=== PATIENT | male | born 1965 | race Caucasian/White ===

== ENCOUNTER 2021-05-19 08:36 | Emergency (ER) | payer BC, SELFPAY ==
--- NOTE | ~2021-05-19 | XR_ITS ---
EXAMINATION: XR ribs LT 2V EXAM DATE: 05/19/2021 09:45 INDICATION: Swelling and status post 05/14/2021, left posterior flank pain. TECHNIQUE: Frontal projection of the upper left ribs, frontal projection of the lower left ribs, obli que projection of the left ribs, without chest x-ray(s) for interpretation. There is no prior study for comparison. FINDINGS: Acute closed posttraumatic fractures through the left 7th and 8th ribs posteriorly. Mild di splacement to the 8th rib. No pneumothorax. L4-5 lumbar fusion. There are also chronic appearing rib fractures of the 8th 9th and 10th ribs anterolaterally. IMPRESSION: 1. Acute left 7th, 8th rib fractures posteriorly. 2. Chronic appearing 8-10th rib fractures anterolaterally. Reviewed, dictated and finalized at location B.
[2021-05-19 08:50] VITALS: BP 146/85; PULSE 88; RESP 18; TEMP 36.7; O2SAT 99
--- NOTE | 2021-05-19 09:47 | ED.GENADULT ---
HPI - General Adult General Chief complaint: Upper Respiratory Infection Stated complaint: left side back pain from injury Time Seen by Provider: 05/19/21 09:47 Source: patient, RN notes reviewed and old records reviewed Mode of arrival: ambulatory Limitations: no limitations History of Present Illness HPI narrative: 55 year old male presents to [facility] care with complaints of pain to his left lateral posterior chest region since . He reports that he tripped over his dog and fell into wrought iron bed headboard hitting his left side of his posterior lateral chest. Patient reports no acute shortness of breath but increase in pain to left lateral posterior chest if he coughs or sneezes, denies any known wheezes. Onset (ago): day(s) (5) Related Data Home Medications Medication Instructions Recorded Confirmed fluoxetine mg 05/19/21 gabapentin 05/19/21 meloxicam 05/19/21 trazodone 05/19/21 Allergies Allergy/AdvReac Type Severity Reaction Status Date / Time No Known Allergies Allergy Verified 05/19/21 10:06 Review of Systems Review of Systems: CONSTITUTIONAL: Denies fever, chills, or sweats. EYES: Denies visual changes, redness, or discharge. ENT: Denies rhinorrhea, congestion, sore throat, or otalgia. CARDIOVASCULAR: Positive left lateral posterior chest pain,no palpitations, or edema. RESPIRATORY: Denies cough or acute dyspnea. GASTROINTESTINAL: Denies abdominal pain, nausea, vomiting, or diarrhea. GENITOURINARY: Denies dysuria or hematuria. SKIN: Denies rash or itching. MUSCULOSKELETAL: Denies back pain, joint pain, or myalgia. NEUROLOGIC: Denies headache, numbness, or weakness. PSYCHIATRIC:Positive history of anxiety or depression. All systems reviewed & are unremarkable except as noted in HPI and below PMFSH Past Medical History Medical History (Updated 05/23/21 @ 09:40 by Bridgette Brothers NP) Anxiety Left rib fracture Rib fractures Surgical History Surgical History (Updated 05/23/21 @ 09:39 by Bridgette Brothers NP) History of left knee surgery Previous back surgery Lumbar 4-5 Family History Family History (Updated 05/23/21 @ 09:39 by Bridgette Brothers NP) Other Family history non-contributory Social History Social History (Updated 09/18/21 @ 09:38 by Bridgette Brothers NP) Smoking status: Current every day smoker Tobacco type: cigarettes and e-cigarettes/vaping Alcohol intake: current Alcohol use details: social Substance use: never Gender identity (if verbalized by the patient): Male Comments At time of signature, agree with nursing past medical, surgical, social and family history. There is no relevant family history pertinent to the presenting complaint Exam Narrative: GENERAL: Well-appearing, well-nourished, and in no acute distress. HEAD: Normocephalic, atraumatic. EYES: PERRLA and EOMI. ENT: Nares clear, no rhinorrhea or epistaxis. Mucous membranes moist. NECK: Supple. no lymphadenopathy CHEST: Clear to auscultation. No respiratory distress.SAO2 99% on room air pain to left lateral posterior aspect of chest from injury no tachypnea noted HEART: Regular rate and rhythm. No murmur heard. Normal peripheral pulses. ABDOMEN: Soft, nontender, nondistended, normal active bowel sounds. EXTREMITIES: Normal range of motion. No edema. SKIN: Warm, dry, no rash. NEURO: No focal deficits. Alert and oriented x3. Course Vital Signs Vital signs: Vital Signs Temperature 36.7 C 05/19/21 08:50 Pulse Rate 88 05/19/21 08:50 Respiratory Rate 18 05/19/21 08:50 Blood Pressure 146/85 H 05/19/21 08:50 Pulse Oximetry 99 05/19/21 08:50 Temperature 36.7 C 05/19/21 08:50 Pulse Rate 88 05/19/21 08:50 Respiratory Rate 18 05/19/21 08:50 Blood Pressure 146/85 H 05/19/21 08:50 Pulse Oximetry 99 05/19/21 08:50 Medical Decision Making Differential Diagnosis Differential Diagnosis: contusion to ribs, fracture to ribs, posterior lateral
== END 2021-05-19 10:20 | disposition home or self-care (01) ==
PROVIDERS: Emergency Provider Registered Nurse; PCP Family Medicine
DX: S22.42XA Multiple fractures of ribs, left side, initial encounter for closed fracture (principal); X58.XXXA Exposure to other specified factors, initial encounter
CPT/HCPCS: 71100; 99213; G0463

== ENCOUNTER 2021-05-25 14:40 | Outpatient (CLI) | payer BC, SELFPAY ==
[2021-05-25 19:46] LABS: Hematocrit 43.5 % (42.0-52.0); Hemoglobin 14.4 g/dL (14.0-18.0); Mean Corpuscular HGB Conc 33.1 g/dl (32-36); Mean Corpuscular Hemoglobin 32.4 pg (26-34); Mean Platelet Volume 9.3 fl (7.4-10.4); Platelet Count Result 206 k/mm3 (150-375); Red Blood Count 4.44 M/mm3 (4.6-6.20); Red Cell Distribution Width 14.1 % (11.5-14.5); White Blood Count 5.6 K/mm3 (4.5-10.0)
[2021-05-25 19:55] LABS: Alanine Aminotransferase 46 U/L (4-50); Albumin Level 4.2 g/dL (3.5-5.1); Alkaline Phosphatase 60 U/L (38-126); Anion Gap 7 mmol/L (8-16); Aspartate Amino Transferase 39 U/L (17-59); Bilirubin,Total 0.5 mg/dL (0.2-1.3); Blood Urea Nitrogen 22 mg/dL (9-20); Calcium 9.3 mg/dL (8.4-10.2); Carbon Dioxide 29 mmol/L (22-30); Chloride 102 mmol/L (98-107); Cholesterol 151 mg/dL (0-200); Estimated Glomerular Filt Rate > 60; Glucose 110 mg/dL (65-110); HDL Direct 58 mg/dL; Potassium 4.7 mmol/L (3.4-5.0); Sodium 138 mmol/L (137-145); Triglycerides 97 mg/dL (<150)
[2021-05-25 20:07] LABS: LDL Cholesterol Direct 73 mg/dL
[2021-05-25 20:26] LABS: Prostate Specific Antigen 1.8 ng/mL (< OR = 4.0)
[2021-05-25 21:10] LABS: Hemoglobin A1C 5.2 % (<5.7)
== END 2021-05-25 14:41 | disposition home or self-care (01) ==
LOC: ANHBWCLAB 14:41
PROVIDERS: PCP Family Medicine; Visit Provider Family Medicine
DX: Z12.5 Encounter for screening for malignant neoplasm of prostate (principal); G56.03 Carpal tunnel syndrome, bilateral upper limbs; G47.00 Insomnia, unspecified; Z00.00 Encounter for general adult medical examination without abnormal findings; F41.8 Other specified anxiety disorders
CPT/HCPCS: 36415; 80053; 80061; 83036; 84153; 85027; G0103

== ENCOUNTER 2021-06-10 16:15 | Emergency (ER) | payer BC, SELFPAY ==
--- NOTE | 2021-06-10 16:21 | ED.SKABFB ---
HPI - Skin/Abscess/Foreign Bdy General Chief complaint: Skin/Abscess/Foreign Body Stated complaint: Bee Sting Time Seen by Provider: 06/10/21 16:21 Source: patient and RN notes reviewed History of Present Illness HPI narrative: Patient is a 55-year-old male who presents the urgent care with complaints of a bee sting to the left upper arm. Patient states that he got swarmed by bees yesterday and has been using Benadryl, antiseptic cream and aloe to the area. Patient denies of any fever, chills, nausea, vomiting. No other acute complaints. No acute distress noted. Patient aware of the plan of care. Some parts of this dictation were generated by voice recognition software and may contain typographical and/or grammatical inaccuracies. Related Data Home Medications Medication Instructions Recorded Confirmed fluoxetine 40 mg PO DAILY 05/19/21 06/10/21 trazodone 100 mg PO HS 05/19/21 06/10/21 gabapentin 300 mg capsule 300 mg PO BID cap 05/25/21 06/10/21 Allergies Allergy/AdvReac Type Severity Reaction Status Date / Time amoxicillin Allergy Unknown Verified 06/10/21 16:37 Sulfa (Sulfonamide Allergy Unknown Verified 06/10/21 16:37 Antibiotics) Review of Systems Review of Systems: CONSTITUTIONAL: Denies fever, chills, or sweats. EYES: Denies visual changes, redness, or discharge. ENT: Denies rhinorrhea, congestion, sore throat, or otalgia. CARDIOVASCULAR: Denies chest pain, palpitations, or edema. RESPIRATORY: Denies cough or dyspnea. GASTROINTESTINAL: Denies abdominal pain, nausea, vomiting, or diarrhea. GENITOURINARY: Denies dysuria or hematuria. SKIN: Reports of redness and swelling to the left upper arm MUSCULOSKELETAL: Denies back pain, joint pain, or myalgia. NEUROLOGIC: Denies headache, numbness, or weakness. All other systems reviewed are negative, except as documented in HPI. FOR[facility]LY [facility] Past Medical History Medical History Anxiety Arthritis Left rib fracture Rib fractures Surgical History Surgical History History of left knee surgery Previous back surgery Lumbar 4-5 Family History Family History Father Throat cancer Alcohol abuse Mother Carcinoma of colon Sibling Malignant neoplasm of prostate Hypertension Depression Anxiety Other Depression Anxiety Other Family history non-contributory Social History Social History Smoking packs per day: 0.5 Smoking cigarettes per day: 10.0 Smoking status: Current every day smoker Tobacco type: cigarettes and e-cigarettes/vaping Alcohol intake: current Alcohol use details: social Substance use: never Gender identity (if verbalized by the patient): Male Comments At the time of my signature, I reviewed and agree with the nursing past medical, surgical, social, and family history. There is no relevant family history pertinent to the patient complaint. Exam Narrative: GENERAL: This is a well-nourished, well-developed patient, in no apparent distress. HEAD: normocephalic, atraumatic. EYES: PERRL. Sclera clear/white. Vision is grossly intact. EARS: External ears normal NOSE: External nose normal with no obvious nasal discharge, nares without redness, no rhinorrhea. THROAT: Mucous membranes moist NECK: Neck supple CARDIOVASCULAR: Regular rate and rhythm without murmurs, gallops, or rubs. RESPIRATORY: Slight crackles bibasilar,no wheezes, rales, or rhonchi. SKIN: 9 x 7 area of erythema to the left upper arm without any signs or symptoms of cellulitis. Warm, intact with no suspicious lesions or rash, good texture and turgor. NEURO: awake, alert, and oriented to person, place and time. There were no obvious focal neurologic abnormalities. EXTREMITIES: No clubbing, cyanosis, or edema. Course Vital Signs Vital s
[2021-06-10 16:24] VITALS: BP 143/80; PULSE 89; RESP 18; TEMP 36.1; O2SAT 98
== END 2021-06-10 16:50 | disposition home or self-care (01) ==
PROVIDERS: Emergency Provider Nurse Practitioner Family; PCP Family Medicine
DX: T63.441A Toxic effect of venom of bees, accidental (unintentional), initial encounter (principal); F17.200 Nicotine dependence, unspecified, uncomplicated; F41.9 Anxiety disorder, unspecified; M19.90 Unspecified osteoarthritis, unspecified site
CPT/HCPCS: 99213; G0463

== ENCOUNTER 2021-07-14 13:44 | Outpatient (CLI) | payer BC, SELFPAY ==
--- NOTE | ~2021-07-14 | XR_ITS ---
XR knee LT min 4V 07/14/2021 14:27 INDICATION: Left knee pain PROCEDURE: 5 views left knee COMPARISON: No prior studies for comparison. FINDINGS: Fracture, dislocation or subluxation is not identified. Small knee effusion. The soft tissu es appear within normal limits. No foreign bodies are identified. IMPRESSION: 1: NO ACUTE BONE OR JOINT ABNORMALITY IDENTIFIED. Reviewed, dictated and finalized at location A. DATION CONSULTANT
== END 2021-07-14 13:45 | disposition home or self-care (01) ==
LOC: ANHBWCIMG 13:45
PROVIDERS: PCP Family Medicine; Visit Provider Family Medicine
DX: M79.2 Neuralgia and neuritis, unspecified (principal); M54.2 Cervicalgia; M25.562 Pain in left knee
CPT/HCPCS: 73564

== ENCOUNTER 2021-07-16 10:37 | Outpatient (CLI) | payer BC, SELFPAY ==
--- NOTE | ~2021-07-16 | CT_ITS ---
EXAMINATION: CT lung screening DATE: 07/16/2021 10:54 INDICATION: Personal history of nicotine dependence, current smoker with 30 pack year history TECHNIQUE: Computed tomography (CT) of the chest was performed without intravenous contrast. The dose -length product (DLP) was 121.62 mGy-cm. Automated exposure control and iterative reconstruction tech [employer] were employed. COMPARISON: None FINDINGS: There is a 3 mm nodule of the right lower lobe. A fissural lymph node is noted in the right minor fissure. There is mild emphysema. The lungs are free of focal airspace opacities. There is no pleural effusion or pneumothorax. No pathologically enlarged thoracic lymph nodes are identified. The heart size is normal. 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 There is a right-sided aortic arch and aorta. There is mild thoracic spondylosis. IMPRESSION: 1. Lung-RADS category 2: Benign appearance or behavior. Continue annual screening with noncontrast lo w-dose chest CT in 12 months. Reviewed, dictated and finalized at location B. NING MANAGER IMPRESSION: 1. Lung-RADS category 2: Benign appearance or behavior. Continue annual screeni ng with noncontrast low-dose chest CT in 12 months.
== END 2021-07-16 10:38 | disposition home or self-care (01) ==
PROVIDERS: PCP Family Medicine; Visit Provider Family Medicine
DX: Z12.2 Encounter for screening for malignant neoplasm of respiratory organs (principal)
CPT/HCPCS: 71271

== ENCOUNTER 2021-08-11 07:43 | Outpatient (CLI) | payer BC, SELFPAY ==
--- NOTE | ~2021-08-11 | XR_ITS ---
EXAMINATION:XR cervical spine 4-5V DATE: 08/11/2021 08:07 INDICATION: Neck pain TECHNIQUE: AP, lateral, lateral swimmers and odontoid views of the cervical spine are provided. COMPARISON: None FINDINGS: There are 2 mm of anterolisthesis of C3 on C4, 2 mm of retrolisthesis of C4 on C5, and 1 mm of retrolisthesis of C5 on C6. The odontoid is intact. There is mild wedging of the C4, C5, and C6 v ertebral bodies. There is mild loss of intervertebral disc space height at C4-5 and C5-6. Small degen erative osteophytes project from the anterior endplates of multiple vertebral bodies. There is modera te multilevel facet osteoarthritis. Prevertebral soft tissues are normal. IMPRESSION: 1. Mild cervical spondylosis with chronic appearing wedging of C4-C6. Consider cervical spine MRI if acute findings are suspected. Reviewed, dictated and finalized at location A. BOSS
[2021-08-11 21:26] LABS: Folic Acid > 20.0 ng/mL (2.76->20)
== END 2021-08-11 07:44 | disposition home or self-care (01) ==
LOC: ANHBWCLAB 07:46
PROVIDERS: PCP Family Medicine; Visit Provider Family Medicine
DX: M47.812 Spondylosis without myelopathy or radiculopathy, cervical region (principal); R20.2 Paresthesia of skin; G56.03 Carpal tunnel syndrome, bilateral upper limbs
CPT/HCPCS: 36415; 72050; 82607; 82746

== ENCOUNTER 2021-12-03 01:35 | Day surgery (SDC) | payer BC, SELFPAY ==
[2021-11-19 15:17] VITALS: BMI 33.5
--- NOTE | 2021-12-02 14:46 | PM.HPGS ---
History of Present Illness History of Present Illness Consent: Risks, benefits, and alternatives have been discussed and questions answered. Patient agrees to proceed with procedure. Chief complaint: neoplasm screening Narrative: Prabhakar Hawley is a 56 year old male Referred for colon cancer screening Review of Systems Review of Systems: All systems reviewed & are unremarkable except as noted in HPI and below PMFSH Past Medical History Medical History Anxiety Arthritis Left rib fracture Rib fractures Surgical History Surgical History History of left knee surgery Previous back surgery Lumbar 4-5 Family History Family History Father Throat cancer Alcohol abuse Mother Carcinoma of colon Sibling Malignant neoplasm of prostate Hypertension Depression Anxiety Other Depression Anxiety Other Family history non-contributory Social History Social History Smoking packs per day: 1 Smoking cigarettes per day: 20.0 Years smoked: 30 Smoking pack-years: 30.00 Smoking status: Current every day smoker Tobacco type: cigarettes Additional smoking assessment comments: smokes 1 PPD Alcohol intake: current Alcohol use details: Drinks 1 pint daily Substance use: never Substance use type: does not use Living arrangements: with family Gender identity (if verbalized by the patient): Male Spiritual care concerns: No Meds Home Medications and Allergies Home Medications Medication Instructions Recorded Confirmed Type gabapentin 300 mg capsule 600 mg PO BID #180 cap 08/06/21 11/19/21 Rx fluoxetine 60 mg tablet 60 mg PO DAILY #90 tablet 09/07/21 11/19/21 Rx sildenafil 50 mg tablet 50 mg PO DAILY PRN #30 tablet 09/30/21 11/19/21 Rx zolpidem 5 mg tablet 5 mg PO QHS PRN #30 tablet 09/30/21 11/19/21 Rx Allergies Allergy/AdvReac Type Severity Reaction Status Date / Time amoxicillin Allergy Unknown Verified 11/19/21 15:04 Sulfa (Sulfonamide Allergy Unknown Verified 11/19/21 15:04 Antibiotics) Exam Const: General: alert Orientation/consciousness: patient oriented x3 Resp: Auscultation: clear to auscultation bilaterally Cardio: Rhythm: regular rhythm GI: GI Palp: Yes Soft to palpation and No Tenderness to palpation present (GI) Neuro: General: patient oriented x3 Assessment and Plan Assessment and plan (1) Colon cancer screening: Code(s): Z12.11 - Encounter for screening for malignant neoplasm of colon Status: Acute Assessment and Plan: Colonoscopy with possible biopsy or polypectomy or cautery or injection of substances.
[2021-12-03 11:12] VITALS: BP 144/82; PULSE 110; RESP 18; TEMP 36.4; O2SAT 98
[2021-12-03] MEDS: LACTATED RINGERS 1,000 ML 150 ML IV CONT (11:15)
--- NOTE | 2021-12-03 11:53 | PM.HPGS ---
History of Present Illness History of Present Illness Consent: Risks, benefits, and alternatives have been discussed and questions answered. Patient agrees to proceed with procedure. Chief complaint: neoplasm screening Narrative: Prabhakar Hawley is a 56 year old male Referred for colon cancer screening. Review of Systems Review of Systems: All systems reviewed & are unremarkable except as noted in HPI and below PMFSH Past Medical History Medical History Anxiety Arthritis Left rib fracture Rib fractures Surgical History Surgical History History of left knee surgery Previous back surgery Lumbar 4-5 Family History Family History Father Throat cancer Alcohol abuse Mother Carcinoma of colon Sibling Malignant neoplasm of prostate Hypertension Depression Anxiety Other Depression Anxiety Other Family history non-contributory Social History Social History Smoking packs per day: 1 Smoking cigarettes per day: 20.0 Years smoked: 30 Smoking pack-years: 30.00 Smoking status: Current every day smoker Tobacco type: cigarettes Additional smoking assessment comments: smokes 1 PPD Alcohol intake: current Alcohol use details: Drinks 1 pint daily Substance use: never Substance use type: does not use Living arrangements: with family Gender identity (if verbalized by the patient): Male Spiritual care concerns: No Meds Home Medications and Allergies Home Medications Medication Instructions Recorded Confirmed Type gabapentin 300 mg capsule 600 mg PO BID #180 cap 08/06/21 11/19/21 Rx fluoxetine 60 mg tablet 60 mg PO DAILY #90 tablet 09/07/21 11/19/21 Rx sildenafil 50 mg tablet 50 mg PO DAILY PRN #30 tablet 09/30/21 11/19/21 Rx zolpidem 5 mg tablet 5 mg PO QHS PRN #30 tablet 09/30/21 11/19/21 Rx Allergies Allergy/AdvReac Type Severity Reaction Status Date / Time amoxicillin Allergy Unknown Verified 12/03/21 11:11 Sulfa (Sulfonamide Allergy Unknown Verified 12/03/21 11:11 Antibiotics) Vital Signs Vital Signs - 24 hr 12/03/21 11:12 Temperature 36.4 C L Pulse Rate 110 H Respiratory Rate 18 Blood Pressure 144/82 H Pulse Oximetry 98 Exam Const: General: alert Orientation/consciousness: patient oriented x3 Resp: Auscultation: clear to auscultation bilaterally Cardio: Rhythm: regular rhythm GI: GI Palp: Yes Soft to palpation and No Tenderness to palpation present (GI) Neuro: General: patient oriented x3 Assessment and Plan Assessment and plan (1) Colon cancer screening: Code(s): Z12.11 - Encounter for screening for malignant neoplasm of colon Status: Acute Assessment and Plan: Colonoscopy with possible biopsy or polypectomy or cautery or injection of substances.
--- NOTE | 2021-12-03 12:05 | WPDANESEPPF ---
Anes - Initial Pre Proc Eval Procedure: Operation Date: 12/03/21 12:30 Proposed Procedures p Screening Colonoscopy - Elvin Moss MD Date/Time: 12/03/21 12:05 Surgeon: Elvin Moss MD Pre Op Diagnosis: neoplasm screening Patient Data Age: 56 Gender: M Height: 1.73 m Weight: 88.1 kg Last Vital Signs Temp 97.5 F L 12/03/21 11:12 Pulse 110 H 12/03/21 11:12 Resp 18 12/03/21 11:12 BP 144/82 H 12/03/21 11:12 Pulse Ox 98 12/03/21 11:12 Allergies Allergy/AdvReac Type Severity Reaction Status Date / Time amoxicillin Allergy Unknown Verified 12/03/21 11:11 Sulfa (Sulfonamide Allergy Unknown Verified 12/03/21 11:11 Antibiotics) Home Medications Medication Instructions Recorded Confirmed Type gabapentin 300 mg capsule 600 mg PO BID #180 cap 08/06/21 11/19/21 Rx fluoxetine 60 mg tablet 60 mg PO DAILY #90 tablet 09/07/21 11/19/21 Rx sildenafil 50 mg tablet 50 mg PO DAILY PRN #30 tablet 09/30/21 11/19/21 Rx zolpidem 5 mg tablet 5 mg PO QHS PRN #30 tablet 09/30/21 11/19/21 Rx Patient hx anesthesia problems: none Family hx anesthesia problems: none Results Review: All pre-operative results and documents have been reviewed as part of the pre-operative evaluation. [facility] Past Medical History Medical History Anxiety Arthritis Left rib fracture Rib fractures Surgical History Surgical History History of left knee surgery Previous back surgery Lumbar 4-5 Family History Family History Father Throat cancer Alcohol abuse Mother Carcinoma of colon Sibling Malignant neoplasm of prostate Hypertension Depression Anxiety Other Depression Anxiety Other Family history non-contributory Social History Social History Smoking packs per day: 1 Smoking cigarettes per day: 20.0 Years smoked: 30 Smoking pack-years: 30.00 Smoking status: Current every day smoker Tobacco type: cigarettes Additional smoking assessment comments: smokes 1 PPD Alcohol intake: current Alcohol use details: Drinks 1 pint daily Substance use: never Substance use type: does not use Living arrangements: with family Gender identity (if verbalized by the patient): Male Spiritual care concerns: No Anes - Eval Final PreProcedure Day of Procedure 12/03/21 12:05 Patient weight: overweight Heart: regular rate and rhythm Lungs: clear to auscultation Airway: Mallampati scale class II Neurological: alert and oriented Last oral intake: >/= 8 hours ASA classification: II Emergent: no Anesthetic plan: proceed Anesthesia type and monitoring: general GIVS and standard monitoring Results Review: All pre-operative results and documents have been reviewed as part of the pre-operative evaluation. Informed Consent: The patient's anesthetic plan and its attendant risks and benefits were discussed with the patient/family/POA. Questions were solicited and answers provided to the satisfaction of the patient/family/POA.
[2021-12-03 12:53] VITALS: BP 91/64; PULSE 100; RESP 15; O2SAT 95
[2021-12-03 13:03] VITALS: BP 102/74; PULSE 99; RESP 16; O2SAT 95
[2021-12-03 13:11] VITALS: BP 125/88; PULSE 106; RESP 18; O2SAT 95
== END 2021-12-03 13:23 | disposition home or self-care (01) ==
PROVIDERS: PCP Family Medicine; Visit Provider Internal Medicine Gastroenterology
PROC: 0DJD8ZZ Inspection of Lower Intestinal Tract, Via Natural or Artificial Opening Endoscopic (ICD-10-PCS; CPT 45378; principal; 2021-12-03 12:30)
DX: Z12.11 Encounter for screening for malignant neoplasm of colon (principal); D12.3 Benign neoplasm of transverse colon; Z80.0 Family history of malignant neoplasm of digestive organs; F41.9 Anxiety disorder, unspecified; F17.210 Nicotine dependence, cigarettes, uncomplicated
CPT/HCPCS: 45385; 88305; J2704; J7120

== ENCOUNTER 2022-02-17 09:43 | Outpatient (CLI) | payer BC, SELFPAY ==
--- NOTE | 2022-02-17 11:30 | NEURO_ITS ---
Impression: # Complains of nocturnal paresthesia, and left hand weakness. # Moderate bilateral Carpal Tunnel Syndrome, left more than right. 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 # Abnormal needle/EMG exam. Nerve Conduction Studies Anti Sensory Summary Table Stim Site NR Peak (ms) P-T Amp (?V) Site1 Site2 Delta-P (ms) Dist (cm) Adin (m/s) Left Median Anti Sensory (2-3nd Digit) Wrist 7.3 17.0 Wrist 2-3nd Digit 7.3 14.0 19 Wrist 5.1 33.0 Wrist 2-3nd Digit 7.3 14.0 19 Right Median Anti Sensory (2-3nd Digit) Wrist 6.3 3.4 Wrist 2-3nd Digit 6.3 14.0 22 Wrist 7.3 5.5 Wrist 2-3nd Digit 6.3 14.0 22 Left Radial Anti Sensory (Base 1st Digit) Wrist 1.9 12.8 Wrist Base 1st Digit 1.9 0.0 Right Radial Anti Sensory (Base 1st Digit) Wrist 2.3 5.5 Wrist Base 1st Digit 2.3 0.0 Left Ulnar Anti Sensory (5th Digit) Wrist 4.9 13.0 Wrist 5th Digit 4.9 14.0 29 Right Ulnar Anti Sensory (5th Digit) Wrist 2.4 14.7 Wrist 5th Digit 2.4 14.0 58 Motor Summary Table Stim Site NR Onset (ms) O-P Amp (mV) Site1 Site2 Delta-0 (ms) Dist (cm) Adin (m/s) Left Median Motor (Abd Poll Brev) Wrist 5.8 3.8 Elbow Wrist 5.1 27.0 53 Elbow 10.9 3.3 Right Median Motor (Abd Poll Brev) Wrist 5.2 0.8 Elbow Wrist 5.1 26.0 51 Elbow 10.3 0.7 Left Ulnar Motor (Abd Dig Minimi) Wrist 3.0 2.9 A Elbow Wrist 8.2 29.0 35 A Elbow 11.2 1.6 B Elbow Wrist 5.0 24.0 48 B Elbow 8.0 0.7 Right Ulnar Motor (Abd Dig Minimi) Wrist 2.6 5.0 A Elbow Wrist 5.3 29.0 55 A Elbow 7.9 3.8 F Wave Studies NR F-Lat (ms) L-R F-Lat (ms) Left Median (Mrkrs) (Abd Poll Brev) 28.23 1.54 Right Median (Mrkrs) (Abd Poll Brev) 29.77 1.54 Left Ulnar (Mrkrs) (Abd Dig Min) 29.07 0.73 Right Ulnar (Mrkrs) (Abd Dig Min) 28.35 0.73 EMG Side Muscle Nerve Root Ins Act Fibs Amp Dur Recrt Comment Right 1stDorInt Ulnar C8-T1 Nml Nml Nml Nml Nml Right Ext Indicis Radial (Post Int) C7-8 Nml Nml Nml Nml Nml Right Ext Digitorum Radial (Post Int) C7-8 Nml Nml Nml Nml Nml Right BrachioRad Radial C5-6 Nml Nml Nml Nml Nml Right PronatorTeres Median C6-7 Nml Nml Nml Nml Nml Right Abd Poll Brev Median C8-T1 Nml Nml Nml >12ms Reduced Left 1stDorInt Ulnar C8-T1 Nml Nml Nml >12ms Reduced Left Ext Indicis Radial (Post Int) C7-8 Nml Nml Nml Nml Nml Left Ext Digitorum Radial (Post Int) C7-8 Nml Nml Nml Nml Nml Left BrachioRad Radial C5-6 Nml Nml Nml Nml Nml Left PronatorTeres Median C6-7 Nml Nml Nml Nml Nml Left Abd Poll Brev Median C8-T1 Nml Nml Nml >12ms Reduced Right ABD Dig Min Ulnar C8-T1 Nml Nml Nml Nml Nml Right Add Pollicis Ulnar C8-T1 Nml Nml Nml Nml Nml Left ABD Dig Min Ulnar C8-T1 Nml Nml Nml >12ms Reduced Left Add Pollicis Ulnar C8-T1 Nml Nml Nml Nml Nml MTDD
== END 2022-02-17 09:44 | disposition home or self-care (01) ==
LOC: ANHNEURO 09:45
PROVIDERS: PCP Family Medicine; Visit Provider Family Medicine
DX: G56.03 Carpal tunnel syndrome, bilateral upper limbs (principal); G56.22 Lesion of ulnar nerve, left upper limb; M54.2 Cervicalgia
CPT/HCPCS: 95886; 95911

== ENCOUNTER 2022-09-16 08:17 | Outpatient (CLI) | payer OTHER, SELFPAY ==
[2022-09-16 19:24] LABS: Basophils Absolute Auto 0.1 K/mm3 (0.0-0.1); Basophils Percent Auto 1.1 % (0.2-1.2); Eosinophils Absolute Auto 0.2 K/mm3 (0-0.3); Eosinophils Percent Auto 3.7 % (0-4.4); Hematocrit 44.4 % (42.0-52.0); Hemoglobin 15.2 g/dL (14.0-18.0); Immature Granulocyte Absolute 0.01 K/mm3 (0.00-0.031); Immature Granulocyte Percent A 0.2 % (0-0.5); Lymphocytes Absolute Auto 2.09 K/mm3 (0.9-3.2); Lymphocytes Percent Auto 38.5 % (18.3-44.2); Mean Corpuscular HGB Conc 34.2 g/dl (32-36); Mean Corpuscular Hemoglobin 32.3 pg (26-34); Mean Corpuscular Volume 94.5 fl (80-100); Mean Platelet Volume 9.8 fl (7.4-10.4); Monocytes Absolute Auto 0.5 K/mm3 (0.1-0.6); Monocytes Percent Auto 8.5 % (2.6-8.5); Neutrophils Absolute Auto 2.6 K/mm3 (1.3-6.7); Platelet Count Result 107 k/mm3 (150-375); Red Cell Distribution Width 13.2 % (11.5-14.5); White Blood Count 5.4 K/mm3 (4.5-10.0)
[2022-09-16 21:01] LABS: Alanine Aminotransferase 21 U/L (6-50); Albumin Level 4.2 g/dL (3.5-5.1); Alkaline Phosphatase 61 U/L (38-126); Anion Gap 5 mmol/L (8-16); Aspartate Amino Transferase 32 U/L (17-59); Bilirubin,Total 0.3 mg/dL (0.2-1.3); Blood Urea Nitrogen 19 mg/dL (9-20); Calcium 8.6 mg/dL (8.4-10.2); Carbon Dioxide 28 mmol/L (22-30); Chloride 104 mmol/L (98-107); Cholesterol 145 mg/dL (0-200); Estimated Glomerular Filt Rate > 60; Glucose 115 mg/dL (65-110); HDL Direct 43 mg/dL; Sodium 137 mmol/L (137-145); Triglycerides 187 mg/dL (<150)
[2022-09-16 21:12] LABS: LDL Cholesterol Direct 78 mg/dL
[2022-09-16 21:30] LABS: Prostate Specific Antigen 1.5 ng/mL (< OR = 4.0)
== END 2022-09-16 08:18 | disposition home or self-care (01) ==
PROVIDERS: PCP Family Medicine; Visit Provider Family Medicine
DX: D69.6 Thrombocytopenia, unspecified (principal)
CPT/HCPCS: 36415; 80053; 80061; 84153; 85025; G0103